=== PATIENT | male | born 1965 | race American Indian/Alaskan Native ===

== ENCOUNTER 2019-04-08 19:21 | Emergency (ER) | payer BC ==
--- NOTE | 2019-04-08 21:18 | Emergency Department Report ---
ED Dizziness HPI - General Stated Complaint: ELEVATED BLOOD PRESSURE, WEAK Time Seen by Provider: 04/08/19 20:52 Source: patient - History of Present Illness Initial Comments: 53-year-old male with history of hypertension presents to ED with episodes of dizziness over the last week. Patient states it occurred once last week and once today. Patient states when the episodes occur they last for approximately 30 minutes. Patient states he feels dizzy, feels as if he is going to pass out, feels a bit shaky, and feels as if something bad is going to happen to him. Patient states his blood pressure was high last week when he checked it. Has been compliant with his blood pressure medications. Patient denies headache, numbness or weakness, chest pain, shortness of breath. He reports he had mild abdominal pain which is resolved. Denies any nausea or vomiting. Patient states he is supposed to follow-up with his physician on tomorrow to get his prostate exam results, states he thinks he may be having some anxiety about the appointment. He also states that he is going through a divorce currently. MD Complaint: dizziness -: week(s) (1) Timing: intermittent Description: lightheadedness History of Same: No History of Trauma: No Severity: moderate Improves With: nothing Worsens With: nothing Associated Symptoms: denies: chest pain, confusion, cough, diaphoresis, fe kaden/chills, shortness of breath, syncope - Related Data Allergies Allergy/AdvReac Type Severity Reaction Status Date / Time No Known Allergies Allergy Unverified 04/08/19 21:22 ED Review of Systems ROS: Stated complaint: ELEVATED BLOOD PRESSURE, WEAK Other details as noted in HPI Comment: All other systems reviewed and negative Constitutional: denies: chills, fever Respiratory: denies: cough, shortness of breath Cardiovascular: denies: chest pain, palpitations Gastrointestinal: abdominal pain. denies: nausea, vomiting, diarrhea Neurological: denies: headache, weakness, numbness Psychiatric: anxiety ED Physical Exam - General General appearance: alert, in no apparent distress - Head Head exam: Present: atraumatic, normocephalic - Eye Eye exam: Present: normal appearance, EOMI - ENT ENT exam: Present: mucous membranes moist - Neck Neck exam: Present: normal inspection - Respiratory Respiratory exam: Present: normal lung sounds bilaterally. Absent: respiratory distress - Cardiovascular Cardiovascular Exam: Present: regular rate, normal rhythm - GI/Abdominal GI/Abdominal exam: Present: soft. Absent: distended, tenderness - Extremities Exam Extremities exam: Present: normal inspection. Absent: pedal edema, calf tenderness - Neurological Exam Neurological exam: Present: alert, oriented X3, CN II-XII intact, normal gait. Absent: motor sensory deficit - Psychiatric Psychiatric exam: Present: normal affect, normal mood - Skin Skin exam: Present: warm, dry, intact, normal color ED Course Vital Signs 04/08/19 04/08/19 04/08/19 21:00 21:13 21:16 Temperature 97.4 F L Pulse Rate 100 H 95 H 97 H Respiratory 16 16 17 Rate Blood Pressure Blood Pressure 142/88 [Left] O2 Sat by Pulse 99 98 99 Oximetry 04/08/19 04/08/19 04/08/19 21:48 22:00 22:16 Temperature Pulse Rate 90 92 H Respiratory 14 16 Rate Blood Pressure 142/88 144/96 144/96 Blood Pressure [Left] O2 Sat by Pulse 97 99 Oximetry 04/08/19 04/08/19 04/08/19 22:30 22:46 23:00 Temperature Pulse Rate 93 H 93 H 94 H Respiratory 18 14 19 Rate Blood Pressure 142/88 142/88 142/88 Blood Pressure [Left] O2 Sat by Pulse 98 99 98 Oximetry ED Medical Decision Making - Lab Data Result diagrams: 04/08/19 21:39 04/08/19 21:39 - EKG Data -: EKG Interpreted by Nd EKG shows normal: sinus rhythm, axis, intervals, QRS complexes, ST-T waves Rate: normal - EKG Data Interpretation: other (T wave inversions I, aVL) - Radiology Data Radiology results: report reviewed, image reviewed - Medical Decision Making Pt w/ episode of dizziness in which he states he feels as if he is going to pass out, feels a bit shaky, and feels as if something bad is going to happen to him. No neuro deficits on exam. Ambulatory w/ normal gait. Workup unremarkable, including CT Head, CXR, labs. Pt is not orthostatic. Symptoms may be related to stress as pt is going through a divorce at this time. Pt feels comfortable w/ discharge home. Outpt f/u advised. Return precautions given. - Differential Diagnosis dehydration, orthostatic hypotension, PE, intracranial abnormality, anxiety Critical care attestation.: If time is entered above; I have spent that time in minutes in the direct care of this critically ill patient, excluding procedure time. ED Disposition Clinical Impression: Dizziness Disposition: DC-01 TO HOME OR SELFCARE Is pt being admited?: No Condition: Stable Instructions: Dizziness (ED), Anxiety (ED) Referrals: PRIMARY CAREMD [Primary Care Provider] - 3-5 Days HEATHER COLINDRES MD [Staff Physician] - 3-5 Days RAHUL BELL MD [Referring] - 3-5 Days Forms: Work/School Release Form(ED) Time of Disposition: 23:14
[2019-04-08 21:20] VITALS: BP 142/88
[2019-04-08 21:52] LABS: Basophils % (Auto) 0.4 % (0.0-1.8); Eosinophils # (Auto) 0.1 K/mm3 (0.0-0.4); Hemoglobin 15.2 gm/dl (11.8-15.2); Lymphocytes # (Auto) 2.7 K/mm3 (1.2-5.4); Lymphocytes % (Auto) 46.1 % (13.4-35.0); Mean Corpuscular HGB Conc 34 % (32-34); Mean Corpuscular Volume 94 fl (84-94); Monocytes # (Auto) 0.5 K/mm3 (0.0-0.8); Monocytes % (Auto) 9.3 % (0.0-7.3); Platelet Count 260 K/mm3 (140-440); Red Blood Count 4.76 M/mm3 (3.65-5.03); Red Cell Distribution Width 13.7 % (13.2-15.2)
--- NOTE | 2019-04-08 21:54 | XRay Report ---
CHEST 1 VIEW INDICATION / CLINICAL INFORMATION: weakness. COMPARISON: None available. FINDINGS: SUPPORT DEVICES: None. HEART / MEDIASTINUM: No significant abnormality. LUNGS / PLEURA: No significant pulmonary or pleural abnormality.. No pneumothorax. ADDITIONAL FINDINGS: No significant additional findings. IMPRESSION: 1. No acute findings. Signer Name: Jeronimo Manley MD Signed: 04/08/2019 9:50 PM Workstation Name: [id number]
[2019-04-08 22:02] LABS: INR 0.97 (0.87-1.13)
[2019-04-08 22:03] LABS: Partial Thromboplastin Time 29.4 Sec. (24.2-36.6)
[2019-04-08 22:14] LABS: BUN/Creatinine Ratio 12; Blood Urea Nitrogen 21 mg/dL (9-20); Calcium 9.7 mg/dL (8.4-10.2); Hemolysis Index 8
--- NOTE | 2019-04-08 22:19 | Cat Scan Report ---
CT HEAD WITHOUT CONTRAST INDICATION: dizziness TECHNIQUE: Axial slices were obtained through the head. Coronal and sagittal reformatted images were obtained. COMPARISON: None available. FINDINGS: There is no intracranial hemorrhage or extra-axial fluid collection. Ventricles, basilar cisterns, an d sulci appear within normal limits for age. There is no mass lesion or midline shift. No acute kaleigh torial infarct is identified. Bone windows demonstrate no acute osseous abnormality. Paranasal sinuses and mastoid air cells appear clear. TECHNIQUE: All CT scans at this facility use dose modulation, iterative reconstruction, automated ex posure control, weight based dosing, when appropriate, to reduce radiation dose to as low as reasonab ly achievable. IMPRESSION: 1. No acute intracranial abnormality. Signer Name: Jeronimo Manley MD Signed: 04/08/2019 10:14 PM Workstation Name: [id number]
== END 2019-04-08 23:50 | disposition home or self-care (01) ==
LOC: ED 19:21
DX: R42 Dizziness and giddiness (principal); I10 Essential (primary) hypertension
CPT/HCPCS: 36415; 70450; 71045; 80048; 84484; 85025; 85379; 85610; 85730; 93005; 93010